=== PATIENT | female | born 1950 | race Caucasian/White ===

== ENCOUNTER → 2019-09-05 | Outpatient (CLI) | payer MEDICARE, OTHER ==
[~2019-09-05] MED LIST: AMIT25TA9 PO; DEXL60CA PO; DICL75TA2 PO; GABA-488 PO; SIMV20TA26 PO
--- NOTE | 2019-09-05 08:16 | Diagnostic Imaging Report ---
CT CHEST SCREENING WO TECHNIQUE: Low-dose unenhanced CT of the chest was performed according to the screening protocol. Coronal MIP and sagittal MPR reformats are created. Automatic exposure controls were utilized to keep dose as low as reasonably achievable. INDICATION: 69-year-old female with 40 pack year history of smoking. Quit smoking 7 months ago. COMPARISON: None available. FINDINGS: Pulmonary findings: No endoluminal nodule within the trachea. No pulmonary mass or consolidation. 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 There is a noncalcified 3 mm nodule within the lingula (image 128, series 2) which is below size threshold for followup. Mild paraseptal emphysema. Extrapulmonary findings: No pleural effusion. No axillary lymphadenopathy. No mediastinal, hilar or juxtaphrenic lymphadenopathy. Calcified mediastinal and left hilar lymph nodes are due to old granulomatous infection. Mild thickening of the pericardium is likely physiologic fluid. Heart is not enlarged. Normal caliber thoracic aorta. Postoperative changes of gastric sleeve surgery. IMPRESSION: 1. Baseline screening exam is negative for features of clinically active lung cancer. 2. Mild paraseptal emphysema. Lung-RADS category: 2 - Benign appearance or behavior Modifier: None. Recommendations: Continued annual screening with low-dose CT in 12 months. Dictated by: Dictated on workstation # [id number]
== END ==
LOC: RAD 07:10
PROVIDERS: ATTEND Family Medicine
DX: Z12.2 Encounter for screening for malignant neoplasm of respiratory organs (principal); Z87.891 Personal history of nicotine dependence; J43.9 Emphysema, unspecified

== ENCOUNTER → 2022-05-14 | Outpatient (CLI) | payer MEDICARE, OTHER ==
--- NOTE | 2022-05-14 13:31 | Diagnostic Imaging Report ---
INDICATION: Routine screening. No prior mammograms are available for comparison. 2-D and 3-D bilateral screening mammography was performed with CAD. Scattered fibroglandular densities are identified bilaterally. There is a density in the central left breast just lateral to the nipple line on the CC view. No definite correlate on the MLO view is seen. Right breast is unremarkable. No suspicious microcalcifications are seen. IMPRESSION: Left breast density. Additional views are recommended for further evaluation. ACR BI-RADS Category 0: Incomplete. (Needs additional imaging evaluation). Result letter will be mailed to the patient. Note: At least 10% of breast cancer is not imaged by mammography. BI-RADS 0 Dictated by: Dictated on workstation # [id number]
== END ==
LOC: RAD 09:03
PROVIDERS: ATTEND Family Medicine
DX: Z12.31 Encounter for screening mammogram for malignant neoplasm of breast (principal); N63.20 Unspecified lump in the left breast, unspecified quadrant
CPT/HCPCS: 77063; 77067

== ENCOUNTER → 2022-05-21 | Outpatient (CLI) | payer MEDICARE, OTHER ==
--- NOTE | 2022-05-21 14:12 | Diagnostic Imaging Report ---
Indication: Left breast density. Patient presents for additional views Correlation is made with screening mammogram from 05/14/2022. Unilateral left 2-D and 3-D diagnostic mammography was performed. This included spot compression CC, rolled CC as well as conventional 90 degree lateral views. There is some mild residual density in the upper and slightly outer left breast approximately 5 cm from the nipple. No corresponding density on the lateral view is identified. IMPRESSION: Mild persistent density with additional views. Further evaluation with ultrasound is recommended and will be performed today. BI-RADS 0 ACR BI-RADS Category 0: Incomplete. (Needs additional imaging evaluation). Result letter will be mailed to the patient. Note: At least 10% of breast cancer is not imaged by mammography. Dictated by: Dictated on workstation # [id number]
--- NOTE | 2022-05-21 14:36 | Diagnostic Imaging Report ---
Indication: Abnormal mammogram. Study is performed for further evaluation. Correlation is made with diagnostic mammogram earlier the same day and screening mammogram from 05/14/2022. Sonographic interrogation of the upper and outer aspect of the left breast was performed. No sonographic abnormality is identified. No solid or cystic mass is detected. IMPRESSION: BI-RADS Category 1 No sonographic abnormality is seen. Density noted mammographically most likely represent superimposed fibroglandular tissue. Patient may return to routine annual screening mammography. ACR BI-RADS Category 1: Negative. Result letter will be mailed to the patient. Note: At least 10% of breast cancer is not imaged by mammography. Dictated by: Dictated on workstation # [id number]
== END ==
LOC: RAD 13:22
PROVIDERS: ATTEND Family Medicine
DX: R92.2 Inconclusive mammogram (principal)
CPT/HCPCS: 76642; 77065; G0279

== ENCOUNTER → 2022-05-27 | Outpatient (CLI) | payer MEDICARE, OTHER ==
--- NOTE | 2022-05-27 10:09 | Diagnostic Imaging Report ---
EXAMINATION: CT Lung Screening. INDICATION: 45 pack year smoking history with cessation 1 year ago. TECHNIQUE: Noncontrast, low-dose CT imaging performed according to the lung cancer screening protocol. Auto Exposure Controls were utilize during the CT exam to meet ALARA standards for radiation dose reduction. COMPARISON: 09/05/2019. FINDINGS: Centrilobular emphysematous changes are stable and chronic. No focal consolidation, edema, or pneumonia. There are a few benign calcified granulomata and a tiny 2 to 3 mm subpleural micronodule which is benign in the lingular segment of the left upper lobe. No suspicious new or concerning lung mass. No findings of lung cancer. No thoracic adenopathy. Coronary artery atherosclerotic vascular calcifications are chronic. The upper abdomen shows remote sleeve gastrectomy with no acute appearing abnormality. IMPRESSION: Stable benign findings. Continued annual low-dose CT screening followup in 1 year is recommended. LUNG-RADS CATEGORY: Category 2. MODIFIER: None. OTHER SIGNIFICANT FINDINGS: COPD and atherosclerotic vascular calcifications are chronic with benign granulomatous residua, stable. Dictated by: Dictated on workstation # [id number]
== END ==
LOC: RAD 08:25
PROVIDERS: ATTEND Family Medicine
DX: R91.8 Other nonspecific abnormal finding of lung field (principal); Z87.891 Personal history of nicotine dependence
CPT/HCPCS: 71271